=== PATIENT | female | born 2000 | race Two or more races ===

== ENCOUNTER 2023-01-17 15:53 | Emergency (ER) | payer OTHER ==
[~2023-01-17] VITALS: Ht 154.9 cm; Wt 72.6 kg
[2023-01-17] MEDS ORDERED: IBUPROFEN 400 MG TABLET PO ONE (16:30)
[2023-01-17] MEDS ORDERED: IBUPROFEN 400 MG TABLET ONE (17:04)
[2023-01-17 18:33] VITALS: BP 135/81; TEMP 98.9; O2SAT 98
== END 2023-01-17 18:33 | disposition home or self-care (01) ==
LOC: ER 16:07
DX: S52.591A Other fractures of lower end of right radius, initial encounter for closed fracture (principal); V89.2XXA Person injured in unspecified motor-vehicle accident, traffic, initial encounter; Y93.89 Activity, other specified; Y92.89 Other specified places as the place of occurrence of the external cause; Y99.8 Other external cause status
CPT/HCPCS: 73110; 73130-TC